=== PATIENT | male | born 1990 | race Caucasian/White ===

== ENCOUNTER → 2016-09-20 | Outpatient (CLI) | payer BC | LOC: COL.RAD 07:42 | DX: S63.591A Other specified sprain of right wrist, initial encounter (principal); M77.8 Other enthesopathies, not elsewhere classified; S60.211A Contusion of right wrist, initial encounter | CPT/HCPCS: A9585; Q9967 ==

== ENCOUNTER → 2016-09-26 | Outpatient (CLI) | payer BC | LOC: COL.RAD 12:32 | DX: M25.531 Pain in right wrist (principal) | CPT/HCPCS: J3301; Q9967 ==

== ENCOUNTER → 2017-02-11 | Outpatient (CLI) | payer BC | LOC: COL.RAD 11:20 | DX: M25.531 Pain in right wrist (principal) | CPT/HCPCS: J3301; Q9967 ==

== ENCOUNTER 2017-05-30 03:51 | Emergency (ER) | payer BC ==
[~2017-05-30] VITALS: Ht 175.3 cm; Wt 79.5 kg
[2017-05-30 03:55] VITALS: TEMP 99.4
[2017-05-30] MEDS ORDERED: PRILOTC (04:17)
[2017-05-30] MEDS ORDERED: VALTREX 50500 MG/TAB PO (04:18)
[2017-05-30] MEDS ORDERED: NAPROSYN 2250 MG/TAB PO (04:18)
[2017-05-30 04:58] LABS: BASO % 0.3 % (0.0-2.0); EOS # 0.3 (0.0-0.7); EOS % 4.5 % (0-4.0); GRAN # 3.9 (1.4-6.5); GRAN % 64.4 % (42.2-75.2); HEMATOCRIT 43.6 % (42.0-52.0); HEMOGLOBIN 14.8 g/dl (13.5-18.0); LYMPH # 1.3 (1.2-3.4); LYMPH % 21.1 % (20.0-51.0); MEAN CELL VOLUME 88 fl (80.0-100.0); MEAN CORPUSCULAR HEMOGLOBIN 30 pg (27.0-31.0); MEAN CORPUSCULAR HGB CONC 34 g/dl (33.0-37.0); MEAN PLATELET VOLUME 10.1 fl (7.4-10.4); MONO # 0.6 (0.1-0.6); MONO % 9.5 % (1.7-9.3); PLATELET COUNT 222 K/mm3 (130-400); RED BLOOD COUNT 4.97 M/mm3 (4.20-5.60); REDCELL DISTRIBUTION WIDTH-CV 12.2 % (11.5-14.5)
[2017-05-30 05:10] LABS: ALBUMIN 4.3 gm/dL (3.5-5.0); BILIRUBIN,TOTAL 1.1 mg/dL (0.0-1.0); CREATININE, serum 1.16 mg/dL (0.66-1.25); TOTAL PROTEIN 7.3 gm/dL (6.4-8.2)
[2017-05-30] MEDS ORDERED: NORCO 325 MG-51 TAB PO (06:13)
[2017-05-30] MEDS ORDERED: CARAFATE 1GM1 G PO (06:13)
[2017-05-30 06:24] VITALS: BP 150/89; PULSE 48
== END 2017-05-30 06:26 | disposition home or self-care (01) ==
LOC: COL.ER 03:51
PROVIDERS: Emergency Medicine
DX: R10.12 Left upper quadrant pain (principal); F17.220 Nicotine dependence, chewing tobacco, uncomplicated

== ENCOUNTER 2017-06-06 13:26 | Day surgery (SDC) | payer BC ==
[~2017-06-06] VITALS: Ht 177.8 cm; Wt 75.7 kg
[~2017-06-06 13:26] MED LIST: CARAFATE 1GM1 G PO; NAPROSYN 2250 MG/TAB PO; NORCO 325 MG-51 TAB PO; PRILOTC PO; VALTREX 50500 MG/TAB PO
[2017-06-06 14:12] VITALS: BP 144/73; PULSE 57; TEMP 98.2
[2017-06-06] MEDS ORDERED: DEXILANT60 MG PO (14:12)
[2017-06-06 15:54] VITALS: BP 131/50; PULSE 68; TEMP 97.8
[2017-06-06 16:09] VITALS: BP 132/65; PULSE 79
[2017-06-06 16:24] VITALS: BP 125/61; PULSE 80
== END 2017-06-06 16:40 | disposition home or self-care (01) ==
LOC: SDCO 13:26
DX: K63.5 Polyp of colon (principal); K29.30 Chronic superficial gastritis without bleeding
CPT/HCPCS: J2250; J3010; J7030